=== PATIENT | female | born 2000 | race African-American/Black ===

== ENCOUNTER 2023-04-30 21:33 | Emergency (ER) | payer SELFPAY ==
[~2023-04-30] VITALS: Ht 157.5 cm; Wt 59.0 kg
[2023-04-30 21:35] VITALS: O2SAT 98
[2023-04-30] MEDS: SODIUM CHLORIDE 0.9% 1,000 ML IV ONE (22:18)
[2023-04-30] MEDS: ONDANSETRON HCL 4MG/2ML INJ IV STA (22:18)
[2023-04-30 22:56] LABS: HEMATOCRIT. 40.9 % (36.0-48.0); HEMOGLOBIN. 12.8 g/dL (12.0-16.0); MEAN CORPUSCULAR HEMOGLOBIN 30.3 pg (28.0-32.0); MEAN CORPUSCULAR HGB CONC 31.3 g/dL (31.0-37.0); MEAN CORPUSCULAR VOLUME 96.7 fL (81.0-99.0); MEAN PLATELET VOLUME 8.2 fl (7.4-10.4); PLATELET 220 x1000/uL (130-400); RED BLOOD CELL COUNT 4.23 mill/uL (4.2-5.4); RED CELL DISTRIBUTION WIDTH 14.6 % (11.6-14.6); WHITE BLOOD COUNT 15.2 x1000/uL (4.5-11.0)
[2023-04-30 22:58] LABS: DIFFERENTIAL COMMENT 1
[2023-04-30 23:10] LABS: ALANINE AMINOTRANSFERASE < 7 IU/L (10-49); ALBUMIN 4.2 g/dL (3.2-4.8); ASPARTATE AMINOTRANSFERASE 19 IU/L (<34); BILIRUBIN TOTAL 0.4 mg/dL (0.1-1.0); CALCIUM 8.4 mg/dL (8.7-10.4); CARBON DIOXIDE 20 mEq/L (21-32); CHLORIDE 110 mEq/L (98-107); CREATININE 0.6 mg/dL (0.6-1.0); ETHANOL BLOOD 215 mg/dL (<10); GLUCOSE 81 mg/dL (70-105); POTASSIUM 3.7 mEq/L (3.5-5.1); PROTEIN TOTAL 6.5 g/dL (6.0-8.3); SODIUM 140 mEq/L (136-145); UREA NITROGEN BLOOD 6 mg/dL (9-23)
[2023-04-30 23:18] LABS: PLATELET ESTIMATE NORMAL
[2023-05-01 01:02] VITALS: BP 108/86; PULSE 110; RESP 16; TEMP 98.3
== END 2023-05-01 01:02 | disposition home or self-care (01) ==
LOC: ER 21:33
DX: T51.0X1A Toxic effect of ethanol, accidental (unintentional), initial encounter (principal); X58.XXXA Exposure to other specified factors, initial encounter; R11.2 Nausea with vomiting, unspecified
CPT/HCPCS: 80053; 80320; 85025; 36415; 96361; 96374; 99283; J2405; J7030; Z7610 ×2; G0480